=== PATIENT | male | born 1990 | race Caucasian/White ===

== ENCOUNTER 2023-07-20 21:53 | Emergency (ER) | payer SELFPAY ==
--- NOTE | ~2023-07-20 | XR_ITS ---
EXAM: XR hand LT min 3V DATE: 07/20/2023 22:45 HISTORY: pinky injury . COMPARISON: None available. FINDINGS: Normal mineralization. Oblique nondisplaced fracture of the fifth middle phalange. No lyti c or blastic lesion. Joint spaces are maintained. No erosion or periosteal change. Soft tissues withi n normal limits. IMPRESSION: Oblique nondisplaced fracture of the left fifth middle phalange. Reviewed, dictated and finalized at location K.
[2023-07-20 21:57] VITALS: BP 115/67; PULSE 90; RESP 16; TEMP 36.6; O2SAT 100
--- NOTE | 2023-07-20 23:06 | ED.UPPEXIN ---
HPI - Extremity Injury (Upper) General Chief Complaint: Extremity Injury, Upper Stated Complaint: L 5th finger injury Time Seen by Provider: 07/20/23 23:02 History of Present Illness HPI narrative: 33 year old male presents to the emergency department for pain to his left 5th finger. Patient states his dog got excited when he saw another dog and pulled on the leash. Patient states he tried to grab the lesion his left 5th digit bent in a weird way. He is reporting pain to his middle phalanx with overlying ecchymosis. Reports pain with movement. Denies other injuries acquired. Related Data Allergies Allergy/AdvReac Type Severity Reaction Status Date / Time No Known Allergies Allergy Verified 01/23/21 13:07 Review of Systems Review of Systems: CONSTITUTIONAL: Denies fever, chills, or sweats. EYES: Denies visual changes, redness, or discharge. ENT: Denies rhinorrhea, congestion, sore throat, or otalgia. CARDIOVASCULAR: Denies chest pain, palpitations, or edema. RESPIRATORY: Denies cough or dyspnea. GASTROINTESTINAL: Denies abdominal pain, nausea, vomiting, or diarrhea. GENITOURINARY: Denies dysuria or hematuria. SKIN: Denies rash or itching. MUSCULOSKELETAL: See HPI NEUROLOGIC: Denies headache, numbness, or weakness. PSYCHIATRIC: Denies anxiety or depression. PMFSH Past Medical History Medical History Dystrophic nail Underweight Family History Family History Other Family history of coronary artery disease Social History Social History Smoking status: Never smoker Alcohol intake: current Exam Narrative: GENERAL: Well-appearing, well-nourished, and in no acute distress. HEAD: Normocephalic, atraumatic. NECK: Supple. CHEST: Clear to auscultation. No respiratory distress. HEART: Regular rate and rhythm. No murmur heard. Normal peripheral pulses. EXTREMITIES: LUE: tenderness and ecchymosis to the middle phalanx of the 5th digit. No tenderness remainder of hand or wrist. Cap refill less than 2. Radial pulse 2 +. limited flexion the 5th digit secondary to pain. SKIN: Warm, dry, no rash. NEURO: No focal deficits. Alert and oriented x3 Course Vital Signs Vital signs: Vital Signs Temperature 98 F 07/20/23 21:57 Pulse Rate 90 07/20/23 21:57 Respiratory Rate 16 07/20/23 21:57 Blood Pressure 115/67 07/20/23 21:57 Pulse Oximetry 100 07/20/23 21:57 Temperature 98 F 07/20/23 21:57 Pulse Rate 90 07/20/23 21:57 Respiratory Rate 16 07/20/23 21:57 Blood Pressure 115/67 07/20/23 21:57 Pulse Oximetry 100 07/20/23 21:57 MDM - Extremity Injury (Upper) MDM Narrative Medical decision making narrative: 33-year-old male presents to the emergency department for pain to his left 5th digit. See HPI for further history. Vitals stable. Exam is significant for ecchymosis tenderness to the left 5th middle phalanx. He is neurovascularly intact. X-rays reveal an oblique nondisplaced fracture of the left 5th middle phalange. patient was placed in a finger splint, encouraged rice, Tylenol ibuprofen for pain. Will provide plastics and Hand follow-up. ED return precautions discussed. He is agreeable to plan verbalized understanding. Discharged in stable condition. Discharge Plan Discharge Clinical Impression: Finger fracture, left Qualifiers: Encounter type: initial encounter Finger: little finger Fracture type: closed Phalanx: middle Fracture alignment: nondisplaced Qualified Code(s): S62.657A - Nondisplaced fracture of middle phalanx of left little finger, initial encounter for closed fracture Patient Disposition: Home, Self-Care Condition: Stable Instructions: Antibiotic Form, Finger Fracture (ED) Additional Instructions: Your evaluated in the emergency department for pain to yo
--- NOTE | 2023-07-20 23:26 | PC.NURSE ---
Metal finger splint applied to pt's left pinky. CSM intact post splint application.
[2023-07-20 23:31] VITALS: BP 118/70; PULSE 88; RESP 14; O2SAT 100
== END 2023-07-20 23:33 | disposition home or self-care (01) ==
PROVIDERS: Emergency Provider Physician Assistant; PCP Family Medicine
DX: S62.657A Nondisplaced fracture of middle phalanx of left little finger, initial encounter for closed fracture (principal); X50.9XXA Other and unspecified overexertion or strenuous movements or postures, initial encounter; Y93.K1 Activity, walking an animal
CPT/HCPCS: 29130; 73130; 99284